=== PATIENT | male | born 1960 | race Caucasian/White ===

== ENCOUNTER 2019-04-26 22:08 | Emergency (ER) | payer OTHER ==
[~2019-04-26] VITALS: Ht 180.3 cm; Wt 115.7 kg
[~2019-04-26 22:08] MED LIST: CITALOPRAM HBR20 MG PO; LOVASTATIN10 MG PO; PERCOCET 10-321 EACH PO
[2019-04-26] MEDS ORDERED: ASPIR 8181 MG PO (22:18)
--- NOTE | 2019-04-27 18:16 | EKG ---
[facility] [address] [facility] [place] [address] Signed Normal sinus rhythm Nonspecific T wave abnormality Abnormal ECG No previous ECGs available Confirmed by MEGAN EDMONDSON MD ([id number]) on 04/27/2019 6:16:25 PM Electronically Signed By: MEGAN EDMONDSON MD 04/27/19 1816 PATIENT NAME: MAYELA ARCE Electrocardiogram DATE OF : 62 PHYSICIAN: MEGAN EDMONDSON MD REPORT #: [id number] REPORT IS CONFIDENTIAL AND NOT TO BE RELEASED WITHOUT AUTHORIZATION
== END 2019-04-27 00:08 | disposition home or self-care (01) ==
LOC: ED 22:08
DX: R07.9 Chest pain, unspecified (principal); Z88.0 Allergy status to penicillin; Z79.82 Long term (current) use of aspirin; Z79.899 Other long term (current) drug therapy
CPT/HCPCS: 71046; 80053; 83735; 84484; 85025; 85610; 85730; 93005; 93010; 93225; 93226; 93227; 99285-25

== ENCOUNTER 2021-08-31 05:50 | Day surgery (SDC) | payer OTHER ==
[~2021-08-31] VITALS: Ht 180.3 cm; Wt 118.0 kg
[~2021-08-31 05:50] MED LIST changes: +ASPIR 8181 MG PO
--- NOTE | 2021-08-31 08:46 | NUR ---
08/31/21 0846 JANICE MONTOYA 0837-PATIENT ARRIVES TO PACU ON RA. PATIENT IS REACTIVE TO VERBAL STIMULI. RESP EVEN AND UNLABORED. 0839-PATIENT IS DROWSY. DENIES PAIN AND NAUSEA. O2 SATS IN THE LOW TO MID 90'S ON RA. HOB ELEVATED.
[2021-08-31] MEDS ORDERED: MOTRIN IB200 MG PO (08:57)
[2021-08-31] MEDS ORDERED: ACETAMINOPHEN500 MG PO (08:57)
[2021-08-31] MEDS ORDERED: PERCOCET 7.5-31 EACH PO (08:58)
--- NOTE | 2021-08-31 11:16 | OR ---
[facility] [address] [place], [place] [address] Signed DATE OF OPERATION: 08/31/2021 SURGEON: Peterson Carrasco MD PREOPERATIVE DIAGNOSIS: Soft tissue mass, interscapular area. POSTOPERATIVE DIAGNOSIS: Giant epidermal inclusion cyst 6 cm. PROCEDURE: Excision of interscapular soft tissue mass with primary closure. ANESTHESIA: Local with monitored anesthesia care, Lynne Haskins CRNA (Marcaine 7 mL, 0.25% with epinephrine). INDICATION: This 61-year-old white man is a patient of Dr. Wagner who was noted to have interscapular soft tissue mass, which as it turns out episodically enlarges. It has never had drainage and it has never been infected that he is aware of. Examination shows a soft tissue mass highly suggestive of epidermal inclusion cyst. It was far larger than typical for excision in the office setting. The patient has underlying sleep apnea and other problems and is here today for excision of the soft tissue mass under local with monitored anesthesia care. The risk of bleeding, infection, recurrence, and other unforeseen complications was reviewed in detail, he understands wished to proceed. FINDINGS: Typical epidermal inclusion cyst was noted. However, it was quite large 6 cm excision size in total. Complete excision was accomplished. The rupture of the capsule of the lesion was noted but not deep and strong, confidence that complete excision has been accomplished is noted. Closure required undermining of the soft tissue laterally and double layer closure including interrupted vertical mattress suture. DESCRIPTION OF PROCEDURE: The patient was brought to the operating room, placed in lateral decubitus position left side down. His CPAP device was applied and he was given intravenous sedation with close Electronically Signed By: PETERSON CARRASCO MD 08/31/21 1116 PATIENT NAME: MAYELA ARCE OPERATIVE REPORT DATE OF : 62 REPORT #: [id number] PHYSICIAN: PETERSON CARRASCO MD PCP: MARIBELL WAGNER MD REPORT IS CONFIDENTIAL AND NOT TO BE RELEASED WITHOUT AUTHORIZATION [facility] [address] [place], [place] [address] Signed monitoring. The back was prepared with a Betadine solution and draped sterilely. The area in question was essentially in the midline of the interscapular area and the punctum was noted consistent with epidermal inclusion cyst. A field block was undertaken with 0.25% Marcaine with epinephrine. The injection was undertaken in a field block configuration and an elliptical excision is undertaken. Excision size lengthwise was about 6 cm, possibly a bit longer. Wide excision was undertaken and using sharp electrocautery dissection, the dermis undermined laterally. The lesion was larger than I had even expected it to be. Excision was taken into normal subcutaneous tissue down to the fascial layer. Complete excision was undertaken during the course, it was ruptured in the superficial aspect, but a complete excision was accomplished. Irrigation was undertaken. Closure of the wound would not be straightforward on the basis of the size of the excision. Undermining of the subcutaneous layer laterally was undertaken. Tension was taken off the shoulder, which was directed anteriorly and using interrupted 2-0 Vicryl deep subcutaneous layer was reapproximated with interrupted 2-0 Vicryl. The skin was then approximated with full-thickness vertical mattress sutures of 2-0 nylon on a large needle. Bacitracin was applied as was an Acticoat dressing. The patient was allowed to return to the supine position, allowed to emerge from anesthesia and taken to the recovery room in good condition having suffered no complications. Sponge, needle, and instrument counts were reported as correct x3. MD NEFTALI Escobedo/MICHELLEL /[id number] cc: Maribell Wagner MD Copies: MARIBELL WAGNER MD ~ Electronically Signed By: PETERSON CARRASCO MD 08/31/21 1116 PATIENT NAME: MAYELA ARCE OPERATIVE REPORT DATE OF : 62 REPORT #: [id number] PHYSICIAN: PETERSON CARRASCO MD PCP: MARIBELL WAGNER MD REPORT IS CONFIDENTIAL AND NOT TO BE RELEASED WITHOUT AUTHORIZATION
--- NOTE | 2021-09-01 13:17 | PATH ---
[facility] [address] [facility] [place] [address] Signed SPECIMEN(S): A POSTERIOR THORAX SPECIMEN SOURCE: A. POSTERIOR THORAX CLINICAL HISTORY: Soft tissue mass. Excision of cyst/mass. FINAL PATHOLOGIC DIAGNOSIS: Soft tissue mass, posterior thorax, excision: - Ruptured epidermoid inclusion cyst. NAL:cml:C2NR MICROSCOPIC EXAMINATION: Histologic sections of all submitted blocks are examined by light microscopy. These findings, together with the gross examination, support the pathologic diagnosis. GROSS DESCRIPTION: The specimen, labeled "CO, A," and designated on the requisition "posterior thorax soft tissue mass," is received in formalin and consists of a polk elliptical skin fragment with attached deep subcutaneous tissue measuring 5.3 x 3.6 x 2.6 cm. The cutaneous surface displays a 3.7 cm superficial cut as well as a 0.3 x 0.2 cm, off-center, brown papule located 0.4 cm from the nearest margin. Specimen is inked blue and serially sectioned revealing a 3.0 x 2.4 x 1.4 cm, subcutaneous, polk-orange caseous cyst, measuring less than 0.1 cm to the inked margin. Principal [employer] sections are submitted in cassettes (A1-A5). (A1-A2: One section, bisected; A5: Uninvolved subcutaneous tissue). AT (under the direct supervision of a pathologist) The Gross Description was prepared using a voice recognition system. The report was reviewed for accuracy; however, sound-alike word errors, addition and/or deletions may occur. If there is any question about this report, please contact Client Services. PERFORMING LABORATORY: The technical component was performed by [facility], [address] [place] [id number] (Enrollment Nurse: Justina Jacob MD; CLIA# [id number]).Professional interpretation was performed by PATIENT NAME: MAYELA ARCE PATHOLOGY DATE OF : 62 REPORT #: [id number] PHYSICIAN: [facility] PCP: MARIBELL RAE MD REPORT IS CONFIDENTIAL AND NOT TO BE RELEASED WITHOUT AUTHORIZATION [facility] [address] [place], [place] [address] Signed [facility], [place] [facility], [address] [facility] [address], [place] [address] (CLIA# [id number]). Diagnostician: Opal Dinero MD Pathologist Electronically Signed 09/01/2021 Copies: ~ PATIENT NAME: MAYELA ARCE PATHOLOGY DATE OF : 62 REPORT #: [id number] PHYSICIAN: [facility] PCP: MARIBELL RAE MD REPORT IS CONFIDENTIAL AND NOT TO BE RELEASED WITHOUT AUTHORIZATION
== END 2021-08-31 09:23 | disposition home or self-care (01) ==
LOC: DS 05:50
PROVIDERS: ATTEND Surgery
PROC: 0JB60ZZ Excision of Chest Subcutaneous Tissue and Fascia, Open Approach (ICD-10-PCS; principal; 2021-08-31 06:45)
DX: L72.0 Epidermal cyst (principal); E78.5 Hyperlipidemia, unspecified; G47.33 Obstructive sleep apnea (adult) (pediatric); E66.01 Morbid (severe) obesity due to excess calories; Z86.010 Personal history of colon polyps; Z80.0 Family history of malignant neoplasm of digestive organs; Z88.0 Allergy status to penicillin; Z79.82 Long term (current) use of aspirin; Z68.36 Body mass index [BMI] 36.0-36.9, adult
CPT/HCPCS: 00400; J0690; J1100; J1644; J1885; J2001; J2250; J2704; J7121

== ENCOUNTER 2024-10-19 07:20 | Day surgery (SDC) | payer BC ==
[~2024-10-19] VITALS: Ht 180.3 cm; Wt 113.6 kg
--- NOTE | ~2024-10-19 | OR ---
[facility] [address] [place], [place] [address] Draft DATE OF OPERATION: 10/19/2024 SURGEON: Peterson Carrasco MD PREOPERATIVE DIAGNOSIS: History of tubular adenoma in 2021. POSTOPERATIVE DIAGNOSES: 1. Sigmoid diverticulosis. 2. Small polyp of sigmoid (probable polyp uncertain). PROCEDURE: Total colonoscopy to cecum with cold morcellation polypectomy x1. ANESTHESIA: Intravenous sedation fentanyl 200 mcg and Versed 9 mg. INDICATION: This 64-year-old white man is a patient of Dr. Wagner. He underwent colonoscopy last in 2021 where he was found to have a tubular adenoma that was relatively large. He has no current symptoms of bleeding, diarrhea, or constipation. He has no other complaints currently. He is admitted to undergo surveillance colonoscopy, understands the risk of bleeding, infection, and perforation. FINDINGS: The prep was excellent. Complete colonoscopy was undertaken of the cecum. He had numerous diverticula of the sigmoid and left colon and one small polyp or presumed polyp of the sigmoid, which was excised with cold morcellation technique. There were no other findings of concern. DESCRIPTION OF PROCEDURE: The patient was brought to the endoscopy suite and placed in lateral decubitus position, given intravenous sedation to the point of slurred speech and nystagmus. Digital rectal examination was normal. An Olympus video colonoscope was passed in the rectum and manipulated throughout the colon noting diverticula of the sigmoid and left colon. Scope was ultimately advanced to the cecum. Full intubation of the cecum was accomplished. Ileocecal valve and appendiceal orifice were normal. The scope was withdrawn from that point and examination showed no sign of abnormality into the left colon where diverticula were PATIENT NAME: MAYELA ARCE OPERATIVE REPORT DATE OF : 62 REPORT #: [id number] PHYSICIAN: PETERSON CARRASCO MD PCP: MARIBELL WAGNER MD REPORT IS CONFIDENTIAL AND NOT TO BE RELEASED WITHOUT AUTHORIZATION [facility] [address] [place], [place] [address] Draft once again seen. In the sigmoid was an area most consistent with a small adenomatous polyp. Narrow-band imaging showed this to be likely though not certain. It was excised with cold morcellation technique. Further withdrawal showed no other findings of note. Retroflexed view of the rectum was normal. Scope was removed. The patient was taken to the recovery room in good condition. CONCLUDING DIAGNOSES: 1. Diverticula. 2. Polyps x1. PLAN: Recommend repeat colonoscopy in 7 to 10 years primarily based on family history of colon cancer in a maternal aunt. MD NEFTALI Escobedo/MICHELLEL /[id number] cc: Dr. Wagner Copies: ~ PATIENT NAME: MAYELA ARCE OPERATIVE REPORT DATE OF : 62 REPORT #: [id number] PHYSICIAN: PETERSON CARRASCO MD PCP: MARIBELL WAGNER MD REPORT IS CONFIDENTIAL AND NOT TO BE RELEASED WITHOUT AUTHORIZATION
[~2024-10-19 07:20] MED LIST changes: +ACETAMINOPHEN500 MG PO; +IBLOOD GLUCOSE TEST STRIP 1 EA TEST VI PRN; +LACTATED RINGER'S 1,000 ML IV SCH; +LIDOCAINE HCL 1% 5 ML SDV INJ ONE; +LISINOPRIL-HCT1 EACH PO; +METFORMIN HCL500 M1 PO; +MIDAZOLAM HCL 5 MG/5 ML VIAL IV PRN; +MOTRIN IB200 MG PO; +PERCOCET 7.5-31 EACH PO; +fentaNYL citrate 100 MCG/2 ML VIAL IV PRN
[2024-10-19 07:38] VITALS: BP 140/79
[2024-10-19] MEDS ORDERED: fentaNYL citrate 100 MCG/2 ML VIAL ONE (08:20)
[2024-10-19] MEDS ORDERED: MIDAZOLAM HCL 5 MG/5 ML VIAL ONE (08:20)
[2024-10-19 09:33] VITALS: BP 119/73
--- NOTE | 2024-10-19 09:55 | NUR ---
10/19/24 0955 Anna Alvarez 0907 PT ARRIVED IN PACU SLEEPY. ABD SOFT AND PASSING FLATUS. 0920 DR AT BEDSIDE. ALL QUESTIONS ANSWERED. 0930 SITTING UP IN BED SIPPING ON JUICE. 0940 DC INSTRUCTIONS GIVEN. 0945 LEFT VIA W/C.
--- NOTE | 2024-10-21 09:53 | PATH ---
[facility] [address] [place], [place] [address] Signed SPECIMEN(S): A LEFT COLON POLYP SPECIMEN SOURCE: A. LEFT COLON POLYP CLINICAL HISTORY: History of colon polyps. Family history of colon cancer. Postop: Possible left colon polyp; sigmoid diverticulosis. Rule out possible left colon polyp. FINAL PATHOLOGIC DIAGNOSIS: Colon, left, polypectomy: - Colonic mucosa with a lymphoid aggregate BRP MICROSCOPIC EXAMINATION: Histologic sections of all submitted blocks are examined by light microscopy. These findings, together with the gross examination, support the pathologic diagnosis. GROSS DESCRIPTION: The specimen, labeled and designated "Nona, left colon polyp," is received in formalin and consists of two polk soft tissue fragments, ranging from 0.1 to 0.2 cm. Entirely submitted in (A1). JS (under the direct supervision of a pathologist) The Gross Description was prepared using a voice recognition system. The report was reviewed for accuracy; however, sound-alike word errors, addition and/or deletions may occur. If there is any question about this report, please contact Client Services. ADDITIONAL NOTES: Immunohistochemical and/or in situ hybridization studies if performed in this case included appropriate positive controls that reacted as expected. This test was developed and its performance characteristics determined by [facility]. It has not been cleared or approved by the U.S. Food and Drug Administration. The FDA has determined that such clearance or approval is not necessary. This test is used for clinical purposes. It should not be regarded as investigational or for research. [facility] is certified under the Clinical Laboratory Improvement Amendments of 1988 (CLIA) as qualified to perform high complexity clinical laboratory testing. PATIENT NAME: MAYELA ARCE PATHOLOGY DATE OF : 62 REPORT #: [id number] PHYSICIAN: YONY FERGUSON PCP: MARIBELL RAE MD REPORT IS CONFIDENTIAL AND NOT TO BE RELEASED WITHOUT AUTHORIZATION [facility] [address] [facility] [place] [address] Signed PERFORMING LABORATORY: Technical component was performed [place] [address] (CLIA# [id number]). Professional interpretation was performed by [facility] - [facility], [address] [place] [address] (CLIA#: [id number]). Diagnostician: Lior Dunn MD Pathologist Electronically Signed 10/21/2024 Copies: ~ PATIENT NAME: MAYELA ARCE PATHOLOGY DATE OF : 62 REPORT #: [id number] PHYSICIAN: YONY FERGUSON PCP: MARIBELL RAE MD REPORT IS CONFIDENTIAL AND NOT TO BE RELEASED WITHOUT AUTHORIZATION
== END 2024-10-19 09:45 | disposition home or self-care (01) ==
LOC: DS 07:20
PROVIDERS: ATTEND Surgery
PROC: 0DBN8ZZ Excision of Sigmoid Colon, Via Natural or Artificial Opening Endoscopic (ICD-10-PCS; principal; 2024-10-19 08:30)
DX: Z12.11 Encounter for screening for malignant neoplasm of colon (principal); K63.5 Polyp of colon; K57.30 Diverticulosis of large intestine without perforation or abscess without bleeding; I10 Essential (primary) hypertension; G47.30 Sleep apnea, unspecified; E66.01 Morbid (severe) obesity due to excess calories; Z68.34 Body mass index [BMI] 34.0-34.9, adult; Z86.0101 Personal history of adenomatous and serrated colon polyps; Z79.82 Long term (current) use of aspirin; Z79.899 Other long term (current) drug therapy; Z88.0 Allergy status to penicillin; Z80.0 Family history of malignant neoplasm of digestive organs
CPT/HCPCS: 99153; G0500; J2250; J3010; J7121